=== PATIENT | female | born 1965 | race Caucasian/White ===

== ENCOUNTER → 2017-03-30 | Outpatient (CLI) | payer BC ==
--- NOTE | 2017-03-30 12:05 | MM ---
Reason for exam: additional evaluation requested from abnormal screening. Last mammogram was performed 1 month ago. History: Patient history of other cancer. Taking hormonal contraceptives beginning at age 36. Physical Findings: Nurse did not find any significant physical abnormalities on exam. MG Work Up Mamm w CAD RT CC with magnification, MLO with magnification, and LM view(s) were taken of the right breast. Prior study comparison: March 12, 2017, bilateral MG screening mammo w CAD. January 31, 2016, bilateral MG screening mammo w CAD. The breast tissue is heterogeneously dense. This may lower the sensitivity of mammography. There are benign appearing punctate calcifications in the upper outer quadrant of the right breast that retrospectively appear similar to multiple priors exams dating back to 2012. No suspicious abnormality. These results were verbally communicated with the patient and result sheet given to the patient on 03/30/17. ASSESSMENT: Benign, BI-RAD 2 RECOMMENDATION: Return to routine screening mammogram schedule for both breasts.
== END | disposition home or self-care (01) ==
LOC: RADMAMWWP 10:12
PROVIDERS: ATTEND Obstetrics & Gynecology
DX: R92.8 Other abnormal and inconclusive findings on diagnostic imaging of breast (principal)
CPT/HCPCS: 77065

== ENCOUNTER → 2018-11-09 | Outpatient (CLI) | payer BC ==
--- NOTE | 2018-11-10 10:01 | MM ---
Reason for exam: screening (asymptomatic). Last mammogram was performed 1 year and 7 months ago. History: Patient history of other cancer. Taking hormonal contraceptives beginning at age 36. Physical Findings: A clinical breast exam by your physician is recommended on an annual basis and results should be correlated with mammographic findings. MG 3D Screening Mammo W/Cad Bilateral CC and MLO view(s) were taken. Prior study comparison: March 30, 2017, right breast MG work up mamm w CAD RT. March 12, 2017, bilateral MG screening mammo w CAD. The breast tissue is heterogeneously dense. This may lower the sensitivity of mammography. Focal asymmetry upper outer right breast 6.4cm from nipple. This finding is changed when compared with previous exams. ASSESSMENT: Incomplete: need additional imaging evaluation, BI-RAD 0 RECOMMENDATION: Special view mammogram of the right breast. If lesion persists on supplemental views, image directed ultrasound is recommended. [facility] will attempt to contact patient to return for supplemental views and ultrasound if indicated.
== END | disposition home or self-care (01) ==
LOC: RADMAMWWP 09:48
PROVIDERS: ATTEND Obstetrics & Gynecology
DX: Z12.31 Encounter for screening mammogram for malignant neoplasm of breast (principal)
CPT/HCPCS: 77063; 77067

== ENCOUNTER → 2018-11-23 | Outpatient (CLI) | payer BC ==
--- NOTE | 2018-11-23 11:21 | MM ---
Reason for exam: additional evaluation requested from abnormal screening. Last mammogram was performed less than 1 month ago. History: Patient history of other cancer. Took hormonal contraceptives. Physical Findings: Nurse did not find any significant physical abnormalities on exam. MG 3D Work Up W/Cad RT Spot compression CC, spot compression MLO, and ML view(s) were taken of the right breast. Prior study comparison: November 09, 2018, bilateral MG 3d screening mammo w/cad. March 30, 2017, right breast MG work up mamm w CAD RT. The breast tissue is heterogeneously dense. This may lower the sensitivity of mammography. There is a 9mm group of upper outer quadrant calcifications at middle depth 5.5cm from nipple. On magnification views these appear heterogeneous but are stable back to 2015. Just above this on ML magnification there are grouped calcifications spanning 5mm, many overlapping with the larger group on CC view. 6 month follow up recommended. The previously seen abnormality resolves on additional views and appears as fibroglandular tissue compatible with summation on right. These results were verbally communicated with the patient and result sheet given to the patient on 11/23/18. ASSESSMENT: Probably benign, BI-RAD 3 RECOMMENDATION: Follow-up diagnostic mammogram of the right breast in 6 months.
== END ==
LOC: RADMAMWWP 10:12
PROVIDERS: ATTEND Obstetrics & Gynecology
DX: R92.8 Other abnormal and inconclusive findings on diagnostic imaging of breast (principal)
CPT/HCPCS: 77061; 77065

== ENCOUNTER → 2019-08-02 | Outpatient (CLI) | payer BC ==
--- NOTE | 2019-08-05 07:18 | MM ---
Reason for exam: follow-up at short interval from prior study. Last mammogram was performed 8 months ago. History: Patient is postmenopausal and history of other cancer. Took hormonal contraceptives. Physical Findings: Nurse did not find any significant physical abnormalities on exam. MG 3D Diag Mammo W/Cad RT CC and MLO view(s) were taken of the right breast. Prior study comparison: November 09, 2018, bilateral MG 3d screening mammo w/cad. March 30, 2017, right breast MG work up mamm w CAD RT. The breast tissue is heterogeneously dense. This may lower the sensitivity of mammography. There are benign appearing round calcifications in the right breast. There is no discrete abnormality. Asymmetric breast tissue right central position unchanged from prior and 2016. These results were verbally communicated with the patient and result sheet given to the patient on 08/02/19. ASSESSMENT: Benign, BI-RAD 2 RECOMMENDATION: Return to routine screening mammogram schedule for both breasts. Back on schedule.
== END | disposition home or self-care (01) ==
LOC: RADMAMWWP 09:50
PROVIDERS: ATTEND Obstetrics & Gynecology
DX: R92.8 Other abnormal and inconclusive findings on diagnostic imaging of breast (principal)
CPT/HCPCS: 77061; 77065

== ENCOUNTER → 2019-12-13 | Outpatient (CLI) | payer BC ==
--- NOTE | 2019-12-13 16:34 | XR ---
EXAMINATION TYPE: XR lumbosacral spine min 4V DATE OF EXAM: 12/13/2019 COMPARISON: None HISTORY: Chronic low back pain TECHNIQUE: Lumbar spine is examined in 5 views. FINDINGS: Mild joint space narrowing is present L5-S1 and L2-3. Mild spondylosis present L1-L3. No sp ondylolytic defects are evident. Mild facet degenerative changes present in the lower right facets. There 5 lumbar-type vertebral bodies. Pedicles are intact. Remaining disc heights are preserved. Vert ebral body heights are preserved. IMPRESSION: 1. Mild degenerative disc changes discussed above
== END | disposition home or self-care (01) ==
LOC: RADXRYALE 11:09
PROVIDERS: ATTEND Physician Assistant Medical
DX: M51.17 Intervertebral disc disorders with radiculopathy, lumbosacral region (principal)
CPT/HCPCS: 72110

== ENCOUNTER → 2021-01-03 | Outpatient (CLI) | payer SELFPAY ==
--- NOTE | 2021-01-04 10:56 | MM ---
Reason for exam: screening (asymptomatic). Last mammogram was performed 1 year and 5 months ago. History: Patient is postmenopausal and history of other cancer. Took hormonal contraceptives. Physical Findings: A clinical breast exam by your physician is recommended on an annual basis and results should be correlated with mammographic findings. MG 3D Screening Mammo W/Cad Bilateral CC and MLO view(s) were taken. Prior study comparison: August 02, 2019, right breast MG 3d diag mammo w/cad RT. November 09, 2018, bilateral MG 3d screening mammo w/cad. March 12, 2017, bilateral MG screening mammo w CAD. The breast tissue is heterogeneously dense. This may lower the sensitivity of mammography. There are benign appearing round calcifications bilaterally. There is no discrete abnormality. ASSESSMENT: Benign, BI-RAD 2 RECOMMENDATION: Routine screening mammogram of both breasts in 1 year.
== END | disposition home or self-care (01) ==
LOC: RADMAMWWP 13:36
PROVIDERS: ATTEND Obstetrics & Gynecology
DX: Z12.31 Encounter for screening mammogram for malignant neoplasm of breast (principal); Z78.0 Asymptomatic menopausal state
CPT/HCPCS: 77063; 77067

== ENCOUNTER → 2022-01-15 | Outpatient (CLI) | payer BC ==
--- NOTE | 2022-01-15 16:19 | BD ---
EXAMINATION TYPE: Axial Bone Density DATE OF EXAM: 01/15/2022 COMPARISON: NONE CLINICAL HISTORY: 56 years old Female. ICD-10 CODE: N95.1 POST MENOPAUSAL SYMPTOMS Height: 68 Weight: 196 FRAX RISK QUESTIONS: Alcohol (3 or more units per day): NO Family History (Parent hip fracture): NO History of Fracture in Adulthood: NO Secondary Osteoporosis: 1. Type 1 Diabetes: NO 2. Hyperthyroidism: NO 3. Menopause before 45: NO 4. Malnutrition: NO 5. Chronic liver disease: NO Rheumatoid Arthritis: NO Current Tobacco Use: NO RISK FACTORS HISTORY OF: Family History of Osteoporosis: NO Active: YES Diet low in dairy products/other sources of calcium: NO Postmenopausal woman: YES MEDICATIONS: Additional Medications: YES VIT D EXAM MEASUREMENTS: Bone mineral densitometry was performed using the [employer]ar System. Bone mineral density as measured about the Lumbar spine is: ----- L1-L4(G/cm2): 1.114 T Score Values are as follows: ----- L1: -1.2 ----- L2: -0.8 ----- L3: 0.4 ----- L4: -0.7 ----- L1-L4: -0.5 Bone mineral density BASELINE Bone mineral density about the R hip (g/cm2): 0.956 Bone mineral density about the L hip (g/cm2): 0.975 T Score values are as follows: -----R Neck: -0.6 -----L Neck: -0.5 -----R Total: -0.7 -----L Total: -0.3 Bone mineral density BASELINE FRAX%s: The graph provided illustrates a 4.9% chance for a major osteoporotic fx and a 0.2% chance fo r the hips probability for fx in 10 years time. IMPRESSION: Normal (Values between +1 and -1 indicate normal bone mass). Consider repeating this study in 5 year s or sooner if there is some new clinical indication. NOTE: T-SCORE=SD OF THE YOUNG ADULT MEAN.
--- NOTE | 2022-01-16 08:48 | MM ---
Reason for Exam: Screening (asymptomatic). Last screening mammogram was performed 12 month(s) ago. Patient History: Menarche at age 14. First Full-Term at age 27. Postmenopausal. Other cancer. Hormonal Contraceptives, ending at age 36. Risk Values: Aidee 5 year model risk: 1.3%. NCI Lifetime model risk: 9.3%. Prior Study Comparison: 11/23/2018 Right Diagnostic Mammogram, [facility]. 08/02/2019 Right Diagnostic Mammogram, [facility]. 01/03/2021 Bilateral Screening Mammogram, [facility]. Tissue Density: The breast tissue is heterogeneously dense. This may lower the sensitivity of mammography. Findings: Analyzed By CAD. There is no suspicious group of microcalcifications or new suspicious mass in either breast. Benign appearing calcifications within both breasts. No significant change from prior exams. Overall Assessment: Benign, BI-RAD 2 Management: Screening Mammogram of both breasts in 1 year. A clinical breast exam by your physician is recommended on an annual basis and results should be correlated with mammographic findings. Electronically signed and approved by: Dean Perea D.O.
== END | disposition home or self-care (01) ==
LOC: RADBDWWP 13:13
PROVIDERS: ATTEND Obstetrics & Gynecology
DX: Z12.31 Encounter for screening mammogram for malignant neoplasm of breast (principal); Z78.0 Asymptomatic menopausal state
CPT/HCPCS: 77063; 77067; 77080

== ENCOUNTER → 2022-08-11 | Outpatient (CLI) | payer BC ==
--- NOTE | 2022-08-11 11:13 | US ---
EXAMINATION TYPE: US kidneys/renal and bladder DATE OF EXAM: 08/11/2022 COMPARISON: NONE CLINICAL INDICATION: Female, 56 years old with history of N20.0 CALCULUS OF KIDNEY; History of kidney stone EXAM MEASUREMENTS: Right Kidney: 10.4 x 4.9 x 6.2 cm Left Kidney: 11.6 x 5.4 x 4.8 cm Right Kidney: no evidence of hydronephrosis Left Kidney: dense echogenic focus upper pole = 0.6cm . No hydronephrosis. Bladder: linear echogenic structures noted Bilateral Jets seen: yes IMPRESSION: 1. Some linear septated debris in the bladder versus artifact. Consider follow-up in 3-4 weeks to reny ssess. Correlate with urinalysis and urine cytology in the meanwhile. 2. No hydronephrosis. 3. Possible 6 mm nonobstructive left renal calculus.
== END | disposition home or self-care (01) ==
LOC: RADUSWWP 10:08
PROVIDERS: ATTEND Urology
DX: N20.0 Calculus of kidney (principal)
CPT/HCPCS: 76770

== ENCOUNTER → 2022-11-10 | Outpatient (CLI) | payer BC ==
--- NOTE | 2022-11-21 22:10 | CE ---
CARDIAC ELECTROPHYSIOLOGY REPORT INDICATION: Rule out cardiac arrhythmia. FINDINGS: The patient was monitored for 7 days. The baseline rhythm appeared to be sinus mechanism. The patient did have 1 episode of paroxysmal atrial tachycardia. Premature ventricular contraction noted as well. CONCLUSION: This is a 7 day event monitor. The baseline rhythm appeared to be sinus mechanism. Rare premature ventricular contraction noted. The patient did have 1 episode of paroxysmal atrial tachycardia. No significant sinus pause or sinus arrest seen. MMODL / IJN: [id number] /
--- NOTE | 2022-11-28 09:33 | EM ---
CARDIAC ELECTROPHYSIOLOGY REPORT INDICATION: Rule out cardiac arrhythmia. FINDINGS: The patient was monitored for 7 days. The baseline rhythm appeared to be sinus mechanism. The patient did have 1 episode of paroxysmal atrial tachycardia. Premature ventricular contraction noted as well. CONCLUSION: This is a 7 day event monitor. The baseline rhythm appeared to be sinus mechanism. Rare premature ventricular contraction noted. The patient did have 1 episode of paroxysmal atrial tachycardia. No significant sinus pause or sinus arrest seen. MTDD
== END | disposition home or self-care (01) ==
LOC: RADECHMAIN 08:01
PROVIDERS: ATTEND Family Medicine
DX: J45.20 Mild intermittent asthma, uncomplicated (principal); I47.1 Supraventricular tachycardia; R00.2 Palpitations; R42 Dizziness and giddiness
CPT/HCPCS: 93270

== ENCOUNTER → 2023-02-24 | Outpatient (CLI) | payer BC ==
--- NOTE | 2023-02-26 12:05 | MM ---
Reason for Exam: Screening (asymptomatic). Last mammogram was performed 1 year(s) and 2 month(s) ago. Patient History: Menarche at age 14. First Full-Term at age 27. Postmenopausal. Hormonal Contraceptives, ending at age 36. Risk Values: Aidee 5 year model risk: 1.3%. NCI Lifetime model risk: 9.1%. Prior Study Comparison: 08/02/2019 Right Diagnostic Mammogram, [facility]. 01/03/2021 Bilateral Screening Mammogram, [facility]. 01/15/2022 Bilateral MG 3D screening mammo w/cad, [facility]. Tissue Density: The breast tissue is heterogeneously dense. This may lower the sensitivity of mammography. Findings: Analyzed By CAD. There is no suspicious group of microcalcifications or new suspicious mass in either breast. Overall Assessment: Negative, BI-RAD 1 Management: Screening Mammogram of both breasts in 1 year. . Patient should continue monthly self-breast exams. A clinical breast exam by your physician is recommended on an annual basis. This exam should not preclude additional follow-up of suspicious palpable abnormalities. Note on Aidee scores and lifetime risk: 1. A Aidee score greater than 3% is considered moderate risk. If this is the case, consider specialist referral to assess eligibility for a risk reducing agent. 2. If overall lifetime risk for the development of breast cancer is 20% or higher, the patient may qualify for future screening with alternating mammogram and breast MRI. Electronically signed and approved by: Charly Banuelos M.D. Radiologis
== END | disposition home or self-care (01) ==
LOC: RADMAMWWP 12:48
PROVIDERS: ATTEND Obstetrics & Gynecology
DX: Z12.31 Encounter for screening mammogram for malignant neoplasm of breast (principal); Z78.0 Asymptomatic menopausal state
CPT/HCPCS: 77063; 77067

== ENCOUNTER → 2024-05-25 | Outpatient (CLI) | payer BC ==
--- NOTE | 2024-05-25 17:22 | MM ---
Reason for Exam: Screening (asymptomatic). Last mammogram was performed 1 year(s) and 3 month(s) ago. Patient History: Menarche at age 14. First Full-Term at age 27. Postmenopausal. Hormonal Contraceptives, ending at age 36. Risk Values: Aidee 5 year model risk: 1.4%. NCI Lifetime model risk: 8.9%. Prior Study Comparison: 01/03/2021 Bilateral Screening Mammogram, [facility]. 01/15/2022 Bilateral MG 3D screening mammo w/cad, [facility]. 02/24/2023 Bilateral MG 3D screening mammo w/cad, [facility]. Tissue Density: There are scattered areas of fibroglandular density. Findings: Analyzed By CAD. Few scattered benign punctate calcifications. Low density 5 mm circumscribed nodularity posterior central left breast typically benign, apparent on 3-D images. There is no suspicious group of microcalcifications or new suspicious mass in either breast. Overall Assessment: Benign, BI-RAD 2 Management: Screening Mammogram of both breasts in 1 year. Patient should continue monthly self-breast exams. A clinical breast exam by your physician is recommended on an annual basis. This exam should not preclude additional follow-up of suspicious palpable abnormalities. Note on Aidee scores and lifetime risk: 1. A Aidee score greater than 3% is considered moderate risk. If this is the case, consider specialist referral to assess eligibility for a risk reducing agent. 2. If overall lifetime risk for the development of breast cancer is 20% or higher, the patient may qualify for future screening with alternating mammogram and breast MRI. [facility], , 05/25/2024 5:19 PM. Electronically signed and approved by: Rohit Baez M.D. Radiologist
== END | disposition home or self-care (01) ==
LOC: RADMAMWWP 11:52
PROVIDERS: ATTEND Family Medicine
DX: Z12.31 Encounter for screening mammogram for malignant neoplasm of breast (principal); R92.323 Mammographic fibroglandular density, bilateral breasts; Z78.0 Asymptomatic menopausal state; Z92.0 Personal history of contraception
CPT/HCPCS: 77063; 77067

== ENCOUNTER → 2024-09-06 | Outpatient (CLI) | payer BC ==
--- NOTE | 2024-09-06 16:35 | XR ---
EXAMINATION TYPE: XR lumbosacral spine min 4V DATE OF EXAM: 09/06/2024 4:24 PM COMPARISON: 12/13/2019 CLINICAL INDICATION: Female, 58 years old with history of [id number] DDD; YCH, pain TECHNIQUE: XR lumbosacral spine min 4V - Frontal, lateral , bilateral oblique and coned in L5-S1 late ral views of the spine. FINDINGS: No evidence of any acute osseous pathology. No evidence of loss of vertebral body height i s seen. There is normal alignment of the lumbar vertebral bodies. Mild scattered disc space narrowing . Multilevel marginal osteophyte formation throughout the visualized spine. There is facet joint arth ropathy throughout the spine. Scattered at least mild neural foraminal stenosis. IMPRESSION: 1. No acute fracture. 2. Mild to moderate multilevel disc degeneration. [facility], , 09/06/2024 4:33 PM
== END | disposition home or self-care (01) ==
LOC: RADXRYALE 16:09
PROVIDERS: ATTEND Physician Assistant Medical
DX: M51.360 Other intervertebral disc degeneration, lumbar region with discogenic back pain only (principal)
CPT/HCPCS: 72110